=== PATIENT | male | born 1955 | race Hispanic/Latino ===

== ENCOUNTER 2018-03-22 04:19 | Emergency (ER) | payer BC ==
--- NOTE | 2018-03-22 08:14 | RAD ---
TWO VIEWS CHEST: DATE: 03/22/2018. PROVIDED CLINICAL HISTORY: Cough and sore throat. FINDINGS: Cardiac and mediastinal silhouette is within normal limits. Lungs appear clear. No pleural fluid or pneumothorax apparent. Degenerative changes are seen involving the thoracic spine. IMPRESSION: No evidence for an acute cardiopulmonary process. POS: [facility]
== END 2018-03-22 05:00 | disposition home or self-care (01) ==
LOC: ERS 04:19
DX: J20.8 Acute bronchitis due to other specified organisms (principal)
CPT/HCPCS: 71046

== ENCOUNTER 2019-06-26 11:44 | Inpatient (IN) | payer MEDICARE, OTHER ==
[2019-06-26] MEDS ORDERED: Aspirin Chewable 81 MG TAB ONE (12:04)
[2019-06-26] MEDS ORDERED: Nitroglycerin 2% Ointment 1 INCH/1 GM Packet ONE (12:09)
[2019-06-26 12:13] LABS: #Basophils 0.1 thou/uL (0.0-0.2); #Eosinphils 0.2 thou/uL (0.0-0.7); #Lymphocytes 5.6 thou/uL (1.20-3.40); #Monocytes 1.4 thou/uL (0.11-0.59); #Neutrophils 10.4 thou/uL (1.40-6.50); %Basophils 0.5 % (0.0-1.0); %Eosinophils 1.2 % (0.0-10.0); %Lymphocytes 31.6 % (21.0-51.0); %Monocytes 7.9 % (0.0-10.0); %Neutrophils 58.8 % (42.0-75.0); Mean Corpuscular HGB CONC 33.7 g/dL (32.0-36.0); Mean Corpuscular Hemoglobin 29.3 pg (27.0-31.0); Mean Corpuscular Volume 86.8 fL (78.0-98.0); Mean Platelet Volume 6.3 fL (7.4-10.4); Platelet Count 640 thou/uL (130-400); RBC Distribution Width 12.9 % (11.5-14.5); Red Blood Cell (RBC) Count 5.11 mill/uL (4.70-6.10); White Blood Cell (WBC) Count 17.6 thou/uL (4.8-10.8)
--- NOTE | 2019-06-26 12:19 | RAD ---
PORTABLE CHEST 1 VIEW: Date: 06/26/2019 Time: 1138 hours HISTORY: Chest pain. FINDINGS: Comparison made with exam of 03/22/2018. The heart size is normal. The aorta is tortuous. The lungs are well expanded without lobar consolidat ion, pneumothoraces, or pleural effusions. There are degenerative changes in the spine. IMPRESSION: No radiographic evidence of acute cardiopulmonary process. POS: [facility]
[2019-06-26] MEDS ORDERED: Morphine 4 MG/ML VIAL ONE (12:26)
[2019-06-26 12:34] LABS: CK (CPK) 97 U/L (30-200); Lipase 51 U/L (8-78)
[2019-06-26 12:51] LABS: Digoxin Less than 0.15 ng/mL (0.8-2.0)
[2019-06-26 14:07] LABS: ALT (SGPT) 34 U/L (8-55); AST (SGOT) 23 U/L (5-34); Albumin 4.5 g/dL (3.4-4.8); Alkaline Phosphatase 76 U/L (40-110); Anion Gap 17 mmol/L (10-20); BUN (Urea Nitrogen) 22 mg/dL (8.4-25.7); Bilirubin, Total 0.9 mg/dL (0.2-1.2); Calc. Creatinine Clearance 0 mL/min (70-130); Calcium 9.8 mg/dL (7.8-10.44); Carbon Dioxide 26 mmol/L (23-31); Chloride 98 mmol/L (98-107); Estimated GFR-MDRD 55; Globulin 3.6 g/dL (2.4-3.5); Glucose 130 mg/dL (80-115); Potassium 3.2 mmol/L (3.5-5.1); Protein, Total 8.1 g/dL (5.8-8.1); Sodium 138 mmol/L (136-145)
--- NOTE | 2019-06-26 14:27 | PDOC.FPRHP ---
- History of Present Illness Chief Complaint: CP chest History of Present Illness: Patient describes pressure in his chest which did not resolve after taking pain medication he had for his hip. He stated it felt like something was stuck in his throat. He then became "clammy and sweaty." Never had anything like this in the past. He states pain is improved since receiving nitro in the ED but it is still there some. Stays right in the center. Currently ranked at 2/10 "its just there, dull pain" , was 6/10 at worst. Rolling over it made worse. Denies history of GERD. ED Course: morphine ASA Nitro - Allergies/Adverse Reactions Allergies Allergy/AdvReac Type Severity Reaction Status Date / Time No Known Allergies Allergy Unverified 06/26/19 14:37 - Home Medications Medication Instructions Recorded Confirmed Type oxyCODONE HCl [Oxycodone HCl] 5 mg PO Q6HR 06/26/19 06/26/19 History - History PMHx: denies past medical history PSHx: L knee replacement Jun 07 in [place] FHx: denies family history of heart disease Social: denies smoking, alcohol, drugs currently. Former smoker, 1/2 ppd for 10 years. - Review of Systems General: denies: fever/chills, night sweats, fatigue Respiratory: denies: cough, shortness of breath Cardiovascular: reports: chest pain (see hpi). denies: palpitation, edema Gastrointestinal: denies: nausea, vomiting, diarrhea, abdominal pain Genitourinary: denies: dysuria Musculoskeletal: reports: arthritis/arthralgias (no change to post surgical knee pain). denies: tenderness, swelling Neurological: denies: seizure, weakness - Vital signs BP: 127/76 HR: 60 RR: 17 Tmax: 98.2 Pox: 97% on RA Wt: 91kg - Physical Exam Constitutional: NAD, awake, alert and oriented HEENT: EOMI, grossly normal vision, grossly normal hearing Neck: supple, trachea midline Chest: no-tender to palpation, no lesions Heart: RRR, normal S1/S2 Lungs: CTAB, no respiratory distress Abdomen: soft, non-tender, bowel sounds present Musculoskeletal: normal structure, normal tone Neurological: no focal deficit, normal sensation Skin: no rash/lesions, good turgor Heme/Lymphatic: no unusual bruising or bleeding, no purpura Psychiatric: normal mood and affect, good judgment and insight FMR H&P: Results - Labs Result Diagrams: 06/26/19 11:57 06/26/19 11:56 Lab results: WBC 17.6 thou/uL (4.8-10.8) H 06/26/19 11:57 Hgb 15.0 g/dL (14.0-18.0) 06/26/19 11:57 Hct 44.4 % (42.0-52.0) 06/26/19 11:57 MCV 86.8 fL (78.0-98.0) 06/26/19 11:57 Plt Count 640 thou/uL (130-400) H 06/26/19 11:57 Neutrophils % 58.8 % (42.0-75.0) 06/26/19 11:57 Sodium 138 mmol/L (136-145) 06/26/19 11:56 Potassium 3.2 mmol/L (3.5-5.1) L 06/26/19 11:56 Chloride 98 mmol/L (98-107) 06/26/19 11:56 Carbon Dioxide 26 mmol/L (23-31) 06/26/19 11:56 BUN 22 mg/dL (8.4-25.7) 06/26/19 11:56 Creatinine 1.30 mg/dL (0.7-1.3) 06/26/19 11:56 Glucose 130 mg/dL (80-115) H 06/26/19 11:56 Calcium 9.8 mg/dL (7.8-10.44) 06/26/19 11:56 Total Bilirubin 0.9 mg/dL (0.2-1.2) 06/26/19 11:56 AST 23 U/L (5-34) 06/26/19 11:56 ALT 34 U/L (8-55) 06/26/19 11:56 Alkaline Phosphatase 76 U/L (40-110) 06/26/19 11:56 Creatine Kinase 97 U/L (30-200) 06/26/19 11:56 Serum Total Protein 8.1 g/dL (5.8-8.1) 06/26/19 11:56 Albumin 4.5 g/dL (3.4-4.8) 06/26/19 11:56 Lipase 51 U/L (8-78) 06/26/19 11:56 FMR H&P: A/P - Problem List (1) Chest pain in adult Current Visit: Yes Status: Acute Code(s): R07.9 - CHEST PAIN, UNSPECIFIED - Plan Chest pain, likely 2/2 GI vs. MSK vs. ACS A- Overall workup negative so far. Trop/CXR/EKG all unremarkable. Considering pain started after meal I suspect possibility of GERD however considering age, sex, and smoking history he will merit an ACS r/o with stress test. With recent knee surgery we will also rule out PE. P- trend trops -CTA chest -npo at midnight -pharm nuclear stress test tomorrow -nitro prn -will give GI coctail and start on JUAN LUIS famotidine -tums prn R knee replacement - aware, will not tolerate exercise stress test dispo: admit tele obs IVF: SL PPx: famotidine, lovenox CODE: FULL
[2019-06-26 15:21] LABS: Troponin I 0.131 ng/mL (< 0.028)
[2019-06-26] MEDS ORDERED: Iopamidol 370 76% 100 ML VIAL ONE (15:32)
[2019-06-26] MEDS ORDERED: Ondansetron ODT 4 MG TAB PO PRN (17:21)
[2019-06-26] MEDS ORDERED: Potassium Chloride 20 MEQ TAB PO SCH (17:21)
[2019-06-26] MEDS ORDERED: Lidocaine 2% Viscous Solution 10 ML, Aluminum & Magnesium Hydroxide 30 ML SSW SCH (17:21)
[2019-06-26] MEDS ORDERED: Calcium Carbonate 500 MG ChewTAB PO PRN (17:21)
[2019-06-26] MEDS ORDERED: Ondansetron PF 4 MG/2 ML Vial IVP PRN (17:21)
[2019-06-26] MEDS ORDERED: Nitroglycerin 0.4 MG TAB (25 Tab Bottle) SL PRN (17:21)
--- NOTE | 2019-06-26 17:54 | CT ---
CT angiogram chest: 06/26/2019 COMPARISON: None HISTORY: Chest pain, fever, assess for pulmonary embolism TECHNIQUE: Axial CT imaging at 2.5 mm intervals through the chest with IV contrast using CT angiogram protocol with coronal and sagittal 3-D reformatted imaging. FINDINGS: Coronary arterial calcification noted. No pulmonary arterial filling defect seen to suggest the presence of acute pulmonary arterial embolism. No axillary, hilar, or mediastinal lymphadenopathy. Limited assessment of the upper abdomen appears grossly unremarkable. No pleural, pericardial, or mediastinal fluid. No pneumothorax noted on either side. Minimal linear density noted within the lingula suggesting volume loss or scar. No acute pulmonary pa renchymal abnormality is evident on either side. No endobronchial lesion is appreciated. Review of the osseous structures demonstrates no acute findin gs. IMPRESSION: No evidence of acute pulmonary arterial embolism.
[2019-06-26 18:39] LABS: Troponin I 1.015 ng/mL (< 0.028)
[2019-06-26] MEDS ORDERED: Enoxaparin Sodium 100 MG/ML SYRINGE SC SCH (19:15)
[2019-06-26 20:23] VITALS: BMI 31.9
[2019-06-26 21:33] LABS: Troponin I 4.016 ng/mL (< 0.028)
[2019-06-26] MEDS: Famotidine 20 MG TAB PO SCH (21:42)
[2019-06-26] MEDS: Acetaminophen 325 MG TAB PO PRN (23:57)
[2019-06-27] MEDS: Morphine 2 MG/ML SYRINGE SLOW IVP PRN ×3 (01:00→16:00)
[2019-06-27 05:15] LABS: #Basophils 0.1 thou/uL (0.0-0.2); #Eosinphils 0.2 thou/uL (0.0-0.7); #Lymphocytes 3.4 thou/uL (1.20-3.40); #Monocytes 1.2 thou/uL (0.11-0.59); #Neutrophils 11.8 thou/uL (1.40-6.50); %Basophils 0.6 % (0.0-1.0); %Lymphocytes 20.6 % (21.0-51.0); %Monocytes 7.2 % (0.0-10.0); %Neutrophils 70.7 % (42.0-75.0); Hemoglobin 13.8 g/dL (14.0-18.0); Mean Corpuscular HGB CONC 33.6 g/dL (32.0-36.0); Mean Corpuscular Hemoglobin 28.9 pg (27.0-31.0); Mean Platelet Volume 6.4 fL (7.4-10.4); Platelet Count 522 thou/uL (130-400); Red Blood Cell (RBC) Count 4.79 mill/uL (4.70-6.10); White Blood Cell (WBC) Count 16.7 thou/uL (4.8-10.8)
[2019-06-27 05:35] LABS: ALT (SGPT) 45 U/L (8-55); AST (SGOT) 138 U/L (5-34); Alkaline Phosphatase 69 U/L (40-110); Anion Gap 13 mmol/L (10-20); BUN (Urea Nitrogen) 22 mg/dL (8.4-25.7); Bilirubin, Total 0.9 mg/dL (0.2-1.2); Calc. Creatinine Clearance 107 mL/min (70-130); Calcium 9.2 mg/dL (7.8-10.44); Carbon Dioxide 25 mmol/L (23-31); Chloride 100 mmol/L (98-107); Estimated GFR-MDRD 86; Globulin 3.1 g/dL (2.4-3.5); Glucose 134 mg/dL (80-115); Potassium 4.1 mmol/L (3.5-5.1); Protein, Total 7.1 g/dL (5.8-8.1); Sodium 134 mmol/L (136-145)
--- NOTE | 2019-06-27 07:40 | PDOC.FM ---
- Subjective Subjective: Pt rested overnight, reports his pain improved greatly initially but this morning has worsened once again. He had 2 bouts (nilda 10 seconds) of AIVR overnight. Otherwise no complaints. - Objective Vital Signs & Weight: Vital Signs (12 hours) Temp Pulse Resp BP Pulse Ox 06/27/19 05:26 98.2 F 64 18 139/72 97 06/27/19 00:08 84 134/73 06/26/19 20:24 98.2 F 76 18 141/77 H 97 Weight Weight 92.5 kg Result Diagrams: 06/27/19 05:01 06/27/19 05:01 Phys Exam - Physical Examination Constitutional: NAD HEENT: moist MMs, sclera anicteric Neck: no JVD, supple Respiratory: no wheezing, clear to auscultation bilateral Cardiovascular: RRR, no significant murmur Gastrointestinal: non-tender, no distention Musculoskeletal: no edema, pulses present Neurological: normal sensation, moves all 4 limbs Psychiatric: normal affect, A&O x 3 Skin: no rash, normal turgor Dx/Plan (1) Chest pain in adult Code(s): R07.9 - CHEST PAIN, UNSPECIFIED Status: Acute - Plan Plan: NSTEMI A- Trops increased overnight, cards was consulted (recs appreciated), Th lovenox was administered, cards advises no need to continue trending trops as along as no EKG changes. Considering worsening of CP this AM I will order a stat EKG. CTA chest wnl P- stat EKG -continue Th Lovenox -f/u cards recs Elevated fasting BG -will get HA1C R knee replacement - aware, will not tolerate exercise stress test Hypokalemia -resolved CODE: FULL
[2019-06-27] MEDS: Famotidine 20 MG TAB PO SCH ×2 (08:00→21:36)
[2019-06-27] MEDS: Aspirin 81 mg Enteric Coated Tablet PO SCH (08:00)
[2019-06-27 08:30] LABS: Hemoglobin A1c 5.9 % (4.0-6.0)
[2019-06-27] MEDS ORDERED: Lidocaine 1% (PF) 30 ML VIAL ONE (08:37)
[2019-06-27] MEDS ORDERED: Enoxaparin Sodium 40 MG/0.4 ML SYRINGE SC SCH (09:00)
[2019-06-27] MEDS ORDERED: Enoxaparin Sodium 100 MG/ML SYRINGE SC SCH (09:00)
[2019-06-27] MEDS ORDERED: Heparin 10,000 UNITS/1 ML VIAL ONE (09:29)
[2019-06-27] MEDS ORDERED: Clopidogrel Bisulfate 300 MG TAB ONE (09:29)
[2019-06-27] MEDS ORDERED: Nitroglycerin 100MG/250ML BOT 250 ML ONE (09:29)
[2019-06-27] MEDS ORDERED: Verapamil 5 MG/2 ML VIAL ONE (09:29)
[2019-06-27] MEDS ORDERED: Adenosine 6 MG/2 ML VIAL ONE (09:29)
--- NOTE | 2019-06-27 09:46 | CON ---
DATE OF CONSULTATION: REASON FOR CONSULTATION: Elevated troponin and chest pain. HISTORY OF PRESENT ILLNESS: López is a very pleasant 64-year-old gentleman , who began having chest pain yesterday after taking medicine for hip pain from recent surgery. There was concern for a pill stuck in his throat. His initial troponins were negative. He did have pretty significant pain at that time at a 6/10. His pain significantly subsided once got into the emergency room. The patient did have a peak troponin of 4. I was called by resident last pm because of elevated troponin. No CP or EKG noted per resident. Instructed to give lovenox. Pt without previous h/o CAD and no RF for CAD. The patient did state he has had a mild discomfort since early this morning. His has pain worsened this am 3/10 and received morphine. Upon my arrival, he had minimal symptoms. His EKG initially showed no acute ST-T wave changes suggesting infarction or significant ischemia. PAST MEDICAL HISTORY: None. SURGICAL HISTORY: Knee replacement. SOCIAL HISTORY: No current tobacco or alcohol use. Previous tobacco use. REVIEW OF SYSTEMS: A 10-point review of systems is reviewed as above, otherwise negative. PHYSICAL EXAMINATION: GENERAL: Patient is a pleasant male, who is in no acute distress. The patient appears their stated age. VITAL SIGNS: Blood pressure 152/80, pulse 69, temperature 92. NEUROLOGIC: The patient is alert and oriented x3 with no focal neurologic deficits. HEENT: Sclerae without icterus. Mouth has moist mucous membranes with normal pallor. NECK: No JVD. Carotid upstroke brisk. No bruits bilaterally. LUNGS: Clear to auscultation with unlabored respirations. BACK: No scoliosis or kyphosis. CARDIAC: Regular rate and rhythm with normal S1 and S2. No S3 or S4 noted. No significant rubs, murmurs, thrills, or gallops noted throughout the precordium. PMI is not displaced. There is no parasternal heave. ABDOMEN: Soft, nontender, nondistended. No peritoneal signs present. No hepatosplenomegaly. No abnormal striae. EXTREMITIES: 2+ femoral and 2+ dorsalis pedis pulses. No cyanosis, clubbing, or edema. SKIN: No gross abnormalities. PERTINENT LABORATORY DATA: Hemoglobin 13.8. Creatinine 0.89. Peak troponin 4.016. IMPRESSION: Unstable angina. RECOMMENDATIONS: Given that Mr. Dawn is continuing to have chest discomfort, I would recommend urgent coronary angiography plus PCI. I discussed procedure in full detail with Mr. Dawn. Risks included not limited to the following: I discussed the procedure in full detail with the patient. The risks of the procedure were also discussed. The risks of the procedure include but are not limited to the following: , stroke, OH, need for emergency surgery, loss of limb, bleeding, and infection, as well as a reaction to the dye causing kidney failure and needing long-term dialysis. I also discussed the risks of PCI to include all of the above including coronary dissection and perforation in addition to acute stent thrombosis and restenosis. All questions about the procedure were answered. Given the above, the patient agreed to proceed with coronary angiography and possible PCI. All questions were answered. Given the above, the patient agreed to proceed above procedure, also discussed drug coated with nondrug coated stent placement. There were no contraindications. We will proceed if needed. Further recommendations pending the above. Job ID: [id number] [facility] SYSTEMKarishma
[2019-06-27] MEDS ORDERED: Sodium Chloride 0.9% 1,000 ML IV SCH (10:00)
[2019-06-27 11:38] LABS: Troponin I 86.921 ng/mL (< 0.028)
[2019-06-27] MEDS ORDERED: Nitroglycerin 50 MG/250 ML BOT 250 ML IVPB SCH (12:30)
[2019-06-27] MEDS ORDERED: ALPRAZolam 0.25 MG TAB PO PRN (15:19)
[2019-06-27] MEDS ORDERED: Iopamidol 370 76% 50 ML VIAL FS ONE (15:50)
[2019-06-27] MEDS ORDERED: Iopamidol 370 76% 100 ML VIAL ONE (15:50)
[2019-06-27 16:43] LABS: Critical Call Chem Troponin I RESULT DECREASING; Troponin I 67.327 ng/mL (< 0.028)
[2019-06-27] MEDS: Carvedilol 3.125 MG TAB PO SCH (17:17)
--- NOTE | 2019-06-27 18:36 | CON ---
DATE OF CONSULTATION: 06/27/2019 HISTORY OF PRESENT ILLNESS: Heron Dawn is a 64-year-old male, who presented with chest pain. He underwent cardiac catheterization this morning with coronary stenting. He has had complete relief of his chest discomfort after that. PAST MEDICAL HISTORY: Remarkable for knee replacement that was done on the left side earlier this year. FAMILY HISTORY: Negative for lung disease or heart disease. SOCIAL HISTORY: Not a smoker when he was young man, but mainly socially when he was drinking with friends. Does not smoke does not invade. Does not use drugs. He is , just moved to town. 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 PHYSICAL EXAMINATION: GENERAL: Very pleasant gentleman. VITAL SIGNS: He is afebrile. Heart rate 68, respiratory rate 16, oximetry is 94, and blood pressure 152/80. HEENT: Pupils are equal. Sclerae are anicteric. NECK: Supple. No lymphadenopathy. LUNGS: Clear. HEART: Regular rhythm. S1 and S2 are normal. ABDOMEN: Soft and nontender. EXTREMITIES: Without clubbing, cyanosis, or edema. LABORATORY DATA: White count 16.7, hemoglobin 13.8, platelets 522, and MCV was 86. Electrolytes are normal. Troponin peaked at 86. IMPRESSION AND PLAN: Myocardial infarction status post coronary stenting. He is a little bit anxious, so we have given him alprazolam to take while he is here. I will follow him while he is in the critical care unit. TIME SPENT: This is a 70-minute consult, 50% of the time spent on the unit coordinating care. Job ID: [id number] [facility]
[2019-06-27] MEDS: Atorvastatin Calcium 40 MG TAB PO SCH (21:37)
[2019-06-27] MEDS: Acetaminophen 325 MG TAB PO PRN (21:44)
[2019-06-28] MEDS: Acetaminophen 325 MG TAB PO PRN ×5 (01:42→21:57)
[2019-06-28 04:11] LABS: #Eosinphils 0.2 thou/uL (0.0-0.7); #Lymphocytes 3.9 thou/uL (1.20-3.40); #Monocytes 1.1 thou/uL (0.11-0.59); #Neutrophils 7.8 thou/uL (1.40-6.50); %Basophils 0.3 % (0.0-1.0); %Eosinophils 1.6 % (0.0-10.0); %Lymphocytes 30.1 % (21.0-51.0); %Monocytes 8.1 % (0.0-10.0); Hemoglobin 13.7 g/dL (14.0-18.0); Mean Corpuscular HGB CONC 33.7 g/dL (32.0-36.0); Mean Corpuscular Hemoglobin 29.3 pg (27.0-31.0); Mean Corpuscular Volume 86.9 fL (78.0-98.0); Mean Platelet Volume 6.4 fL (7.4-10.4); Platelet Count 470 thou/uL (130-400); RBC Distribution Width 13.2 % (11.5-14.5); Red Blood Cell (RBC) Count 4.68 mill/uL (4.70-6.10); White Blood Cell (WBC) Count 13.1 thou/uL (4.8-10.8)
[2019-06-28 04:38] LABS: ALT (SGPT) 40 U/L (8-55); AST (SGOT) 79 U/L (5-34); Albumin 3.7 g/dL (3.4-4.8); Alkaline Phosphatase 65 U/L (40-110); Anion Gap 11 mmol/L (10-20); BUN (Urea Nitrogen) 15 mg/dL (8.4-25.7); Bilirubin, Total 1.2 mg/dL (0.2-1.2); Calc. Creatinine Clearance 113 mL/min (70-130); Carbon Dioxide 25 mmol/L (23-31); Chloride 103 mmol/L (98-107); Estimated GFR-MDRD Greater than 90; Globulin 2.9 g/dL (2.4-3.5); Glucose 122 mg/dL (80-115); Potassium 4.1 mmol/L (3.5-5.1); Protein, Total 6.6 g/dL (5.8-8.1); Sodium 135 mmol/L (136-145)
--- NOTE | 2019-06-28 07:37 | PDOC.FM ---
- Subjective Subjective: Doing well, no CP since cath. No complaitns at this time. - Objective Vital Signs & Weight: Vital Signs (12 hours) Temp Pulse Resp BP Pulse Ox 06/28/19 02:03 97.9 F 82 18 135/72 96 06/27/19 20:00 99.2 F 100 Weight Admit Weight 92 kg Weight 92.215 kg Most Recent Monitor Data Heart Rate from ECG 81 NIBP 102/60 NIBP BP-Mean 77 Respiration from ECG 15 SpO2 97 I&O: 06/27/19 06/28/19 06/29/19 06:59 06:59 06:59 Intake Total 1837.3 Output Total 1700 Balance 137.3 Result Diagrams: 06/28/19 04:02 06/28/19 04:02 Phys Exam - Physical Examination Constitutional: NAD HEENT: moist MMs, sclera anicteric Neck: no JVD, supple Respiratory: no wheezing, clear to auscultation bilateral Cardiovascular: RRR, no significant murmur Gastrointestinal: soft, non-tender Musculoskeletal: no edema, pulses present Neurological: normal sensation, moves all 4 limbs Psychiatric: normal affect, A&O x 3 Skin: no rash, normal turgor Dx/Plan (1) Chest pain in adult Code(s): R07.9 - CHEST PAIN, UNSPECIFIED Status: Acute (2) NSTEMI (non-ST elevated myocardial infarction) Code(s): I21.4 - NON-ST ELEVATION (NSTEMI) MYOCARDIAL INFARCTION Status: Acute - Plan Plan: NSTEMI A- stable. Pt is s/p cath and LAD stent placement day 1. Doing well and asymptomatic. trops 86-->68 P- continue clopidogrel and ASA -coreg -atorvastatin -f/u cards recs -possible DC today Elevated fasting BG -A1C 5.9 R knee replacement -MD aware Hypokalemia -resolved CODE: FULL
[2019-06-28] MEDS: Famotidine 20 MG TAB PO SCH ×2 (09:01→20:28)
[2019-06-28] MEDS: Clopidogrel Bisulfate 75 MG TAB PO SCH (09:01)
[2019-06-28] MEDS: Carvedilol 3.125 MG TAB PO SCH ×2 (09:01→17:42)
[2019-06-28] MEDS: Aspirin Chewable 81 MG TAB PO SCH (09:02)
[2019-06-28] MEDS: Aspirin 81 mg Enteric Coated Tablet PO SCH (09:06)
--- NOTE | 2019-06-28 10:27 | PRG ---
DATE OF SERVICE: 06/28/2019 SUBJECTIVE: Mr. Dawn is doing very well, no current complaints. He is limited ambulation car due to recent knee surgery. No chest pain or pressure noted. OBJECTIVE: VITAL SIGNS: Blood pressure 112/68, pulse 96, temperature afebrile. LUNGS: Clear to auscultation. HEART: Regular rate and rhythm. ABDOMEN: Soft, nontender, nondistended. EXTREMITIES: No edema. IMPRESSION: 1. Non-Q-wave myocardial infarction. 2. Coronary artery disease. RECOMMENDATIONS: Continue aspirin, atorvastatin, in addition to carvedilol. Would increase carvedilol 6.25 to b.i.d. Continue Plavix. Add low-dose ROMAN inhibitor therapy. Check echo. Discussed potential use of LifeVest if LVEF is less than 35%. Would anticipate discharge in a.m. if stable. Job ID: [id number]
--- NOTE | 2019-06-28 11:08 | PRG ---
DATE OF SERVICE: 06/28/2019 Please see note from Dr. Fraris, for which I agree. The patient is seen and discussed and examined with residents by bedside. Basically, he did have a stent placed in his LAD and now states he feels better. It sounds like we are getting an echocardiogram and then is waiting to see what cardiology's recommendations are from there. It sounds like they want to keep him at least another day, and then will do outpatient cardiac rehab in addition to the already rehab is doing on his left knee after the knee replacement surgery. Job ID: [id number]
[2019-06-28] MEDS: Atorvastatin Calcium 40 MG TAB PO SCH (20:28)
[2019-06-29] MEDS: Acetaminophen 325 MG TAB PO PRN (01:44)
[2019-06-29] MEDS: traMADol HCl 50 MG TAB PO PRN ×3 (02:55→16:08)
[2019-06-29] MEDS ORDERED: Lisinopril 2.5 MG TAB PO SCH (09:00)
[2019-06-29] MEDS ORDERED: Losartan 25 MG TAB PO SCH (09:00)
[2019-06-29] MEDS: Famotidine 20 MG TAB PO SCH (09:15)
[2019-06-29] MEDS: Clopidogrel Bisulfate 75 MG TAB PO SCH (09:16)
[2019-06-29] MEDS: Carvedilol 3.125 MG TAB PO SCH ×2 (09:17→16:08)
[2019-06-29] MEDS: Aspirin Chewable 81 MG TAB PO SCH (09:17)
--- NOTE | 2019-06-29 11:14 | PDOC.FM ---
- Subjective Subjective: Pt doing well with no cardiac complaints, no new problems No fever/chills, no CP no sob - Objective Vital Signs & Weight: Vital Signs (12 hours) Temp Pulse Resp BP Pulse Ox 06/29/19 07:44 98.8 F 99 19 115/72 94 L 06/29/19 03:15 98.5 F 84 18 109/68 92 L Weight Admit Weight 92 kg Weight 93.395 kg Most Recent Monitor Data Heart Rate from ECG 81 NIBP 102/60 NIBP BP-Mean 77 Respiration from ECG 15 SpO2 97 I&O: 06/28/19 06/29/19 06/30/19 06:59 06:59 06:59 Intake Total 1837.3 300 Output Total 1700 Balance 137.3 300 Result Diagrams: 06/28/19 04:02 06/28/19 04:02 Phys Exam - Physical Examination Constitutional: NAD HEENT: moist MMs, sclera anicteric Neck: supple, full ROM Respiratory: no wheezing, clear to auscultation bilateral Cardiovascular: RRR, no significant murmur Gastrointestinal: soft, non-tender Musculoskeletal: no edema, pulses present Neurological: normal sensation, moves all 4 limbs Psychiatric: normal affect, A&O x 3 Skin: no rash, normal turgor Dx/Plan (1) Chest pain in adult Code(s): R07.9 - CHEST PAIN, UNSPECIFIED Status: Acute (2) NSTEMI (non-ST elevated myocardial infarction) Code(s): I21.4 - NON-ST ELEVATION (NSTEMI) MYOCARDIAL INFARCTION Status: Acute - Plan Plan: NSTEMI A- stable. Pt is s/p cath and LAD stent placement day 2. Doing well and asymptomatic. trops 86-->68 P- continue clopidogrel and ASA -coreg and lisinopril -atorvastatin -f/u cards recs -possible DC today HFrEF A- 2/2 NSTEMI. EF 30-35%. P- continue lisinopril, coreg -life vest -cardiac rehab Elevated fasting BG -A1C 5.9 R knee replacement -MD aware Hypokalemia -resolved CODE: FULL Addendum - Attending - Attending Attestation Date/Time: 06/29/19 0487 I personally evaluated the patient and discussed the management with Dr. Farris. I agree with the History, Examination, Assessment and Plan documented above with any addition or exceptions noted below.
--- NOTE | 2019-06-29 12:07 | PRG ---
DATE OF SERVICE: 06/29/2019 SUBJECTIVE: Mr. Dawn is doing well. No current complaints. He states he ambulated x2 and has been limited from his knee. No chest pain, pressure, shortness of breath, or other associated symptoms. OBJECTIVE: VITAL SIGNS: Blood pressure 115/72, pulse 99, and temperature afebrile. General: The patient is a pleasant male, in no acute distress, appears stated age. HEAD, EYES, EARS, NOSE AND THROAT: Sclerae without icterus. Mouth: Moist mucous membranes, normal palate. NECK: No jugular venous distention. Carotid upstroke is brisk. No bruits bilaterally. LUNGS: Clear to auscultation. HEART: Regular rate and rhythm, normal S1 and S2. ABDOMEN: Soft, nontender, nondistended. EXTREMITIES: No edema. PERTINENT LABORATORY DATA: Hemoglobin 13.7, hematocrit 40.6. IMPRESSION: 1. Non-Q-wave myocardial infarction. 2. Status post stent placement. RECOMMENDATIONS: 1. The patient is currently on beta-thony therapy and ROMAN inhibitor therapy. We will continue. 2. LVEF is diminished estimated at 30% to 35%. LifeVest has been requested. 3. Continue aspirin, Plavix, and statin therapy. Okay from my standpoint to discharge home with close outpatient followup. Job ID: [id number]
[2019-06-29 13:19] VITALS: TEMP 98
[2019-06-29 16:07] VITALS: BP 116/71
--- NOTE | 2019-06-30 14:54 | DIS ---
DATE OF ADMISSION: 06/26/2019 DATE OF DISCHARGE: 06/29/2019 ADMITTING ATTENDING: Pati Dubois MD. DISCHARGE ATTENDING: Pati Dubois MD. RESIDENT: Thomas Farris MD I personally saw the patient for a total of 4 days. CONSULTS: 1. Cardiology, Dr. Johnson. 2. Cardiac rehab. PROCEDURES: 1. On 06/26/2019, chest x-ray, impression, no acute process. 2. On 06/26/2019, chest thorax CT, impression, no evidence of acute pulmonary arterial embolism. 3. On 06/28/2019, echocardiogram, ejection fraction is visually estimated at 30% to 35%, akinetic motion of the anterior wall and septal wall noted on the left ventricle, mild mitral regurgitation, mild tricuspid regurgitation. 4. On 06/26/2019, cardiac catheterization with LAD stent placed. DISCHARGE MEDICATIONS: 1. Oxycodone 5 mg p.o. q.6 hours, resumed at home. 2. Aspirin 81 mg p.o. daily. 3. Atorvastatin 40 mg p.o. at bedtime. 4. Carvedilol 3.125 mg p.o. b.i.d. 5. Clopidogrel 75 mg p.o. daily. 6. Lisinopril 2.5 mg p.o. daily. DISCONTINUED MEDICATIONS: None. PRIMARY DIAGNOSIS: Sgy-OJ-azswneeeh myocardial infarction. SECONDARY DIAGNOSES: New diagnosis of heart failure with reduced ejection fraction, right knee replacement, hypokalemia. HISTORY OF PRESENT ILLNESS/HOSPITAL COURSE: This is a 64-year-old male, who presented to the hospital with chest pain. The patient was admitted for ACS rule out, had increasing tropes up to 86. Cardiology was consulted and advised therapeutic Lovenox dose to be given. The patient was brought back for catheterization and found to have complete occlusion of the LAD. The stent was successfully placed and the patient had resolution of symptoms. The patient was started on aspirin, clopidogrel, Coreg, lisinopril, and atorvastatin. Arrangements were made for LifeVest as an echocardiogram revealed reduced ejection fraction. Cardiac rehab was set up and LifeVest was set up, and the patient was discharged home in good condition. DISPOSITION: Stable. DISCHARGE INSTRUCTIONS: 1. Location: Home. 2. Activity: Cardiac precautions. 3. Diet: Heart healthy diet. 4. Followup: With Dr. Johnson on 07/07/2019, with primary care physician, Dr. Quique Villa on 07/08/2019 with cardiac rehab. Job ID: [id number]
--- NOTE | 2019-07-01 11:15 | PQF ---
ARACELIS MCKEONCARLY [id number] [facility]-266 [id number] CLINICAL DOCUMENTATION CLARIFICATION FORM: POST DISCHARGE Addendum to original discharge summary date: ____ Late entry note date: __ DATE: 07/01/2019 ATTN:CARLY OLMOS Please exercise your independent, professional judgment in responding to the clarification form. Clinical indicators are provided on the bottom of this form for your review Please check appropriate box(s): [ x ] Acute systolic heart failure [ ] Acute on chronic systolic heart failure [ ] Chronic systolic heart failure [ ] Other diagnosis [ ] Unable to determine In addition, please specify: Present on Admission (POA): [ x] Yes [ ] No [ ] Unable to determine For continuity of documentation, please document condition throughout progress notes and discharge summary. Thank You. CLINICAL INDICATORS - SIGNS / SYMPTOMS / LABS HFrEF 2/2 NSTEMI-Documented in family medicine progress note on 06/28 by Thomas Farris MD EF-30-35%-Documented in family medicine progress note on 06/28 by Thomas Farris MD Status post drug eluting stent placed-Documented in PN on 06/25 by Christian Johnson MD Unstable angina-Documented in consultation on 06/26 by Christian Johnson MD RISKS: HFrEF 2/2 NSTEMI-Documented in family medicine progress note on 06/28 by Thomas Farris MD EF-30-35%-Documented in family medicine progress note on 06/28 by Thomas Farris MD TREATMENTS: Continue clopidogrel and ASA-Documented in family medicine progress note on by Thomas Farris MD Coreg and lisinopril-Documented in family medicine progress note on 06/28 by Thomas Farris MD Atorvastatin-Documented in family medicine progress note on 06/28 by Thomas Farris MD F/U cards recs-Documented in family medicine progress note on 06/28 by Thomas Farris MD The patient is currently on beta-thony therapy and ROMAN inhibitor therapy - Documented in PN on 06/25 by Christian Johnson MD [employer] (This form is maintained as a part of the permanent medical record) 2014 [employer]. All Rights Reserved [email or web address]
== END 2019-06-29 18:55 | disposition home or self-care (01) | DRG 246 ==
LOC: ERS 11:44 → ERHOLD 14:47 → OBSVTOIN 14:47 → 2SW 19:06 → 2NO 19:56 → CCU 06-27 10:02 → 2NO 06-28 02:05
PROVIDERS: ADMIT Family Medicine; ATTEND Family Medicine
PROC: 4A023N7 Measurement of Cardiac Sampling and Pressure, Left Heart, Percutaneous Approach (ICD-10-PCS; principal; 2019-06-26)
PROC: 027034Z Dilation of Coronary Artery, One Artery with Drug-eluting Intraluminal Device, Percutaneous Approach (ICD-10-PCS; 2019-06-26)
PROC: B2111ZZ Fluoroscopy of Multiple Coronary Arteries using Low Osmolar Contrast (ICD-10-PCS; 2019-06-26)
PROC: 02C03ZZ Extirpation of Matter from Coronary Artery, One Artery, Percutaneous Approach (ICD-10-PCS; 2019-06-26)
DX: I21.4 Non-ST elevation (NSTEMI) myocardial infarction (principal); I50.23 Acute on chronic systolic (congestive) heart failure; E87.6 Hypokalemia; Z96.652 Presence of left artificial knee joint; I25.110 Atherosclerotic heart disease of native coronary artery with unstable angina pectoris
CPT/HCPCS: 36415; 36416; 71045; 71275; 76942; 80053; 80162; 82550; 83036; 83690; 84484; 85025; 85347; 92928; 92973; 93005; 93010; 93306; 93458; 93798; 94760; 96374; C1725; C1757; C1769; C1874; C1887; C9600; J0153; J1644; J1650; J2001; J2270; Q9967

== ENCOUNTER 2020-01-05 15:20 | Outpatient (CLI) | payer MEDICARE, OTHER ==
--- NOTE | 2020-01-06 08:49 | MRI ---
MRI LEFT HAND WITHOUT CONTRAST: HISTORY: Strain of extensor pollicis longus. COMPARISON: Hand radiograph 12/25/2019. FINDINGS: Tendons: The extensor pollicis longus distal portion is seen beginning at the thumb metacarpal base is felt to have a normal insertion upon the phalanx of the thumb. It is torn at the level of the metacarpal ba se and retracted into the forearm out of field of view as the axial image does not extend this far pr oximally. There is edema within the empty tendon sheath. Some mild tenosynovitis within the 2nd extensor compartment. Mild tenosynovial fluid in the 3rd exte nsor compartment. The extensor carpi ulnaris appears to be intact. Bones: There is moderate degenerative disease of the scaphotrapezium, trapezoidal, as well as of the thumb c arpal metacarpal joint. No acute displaced fracture. IMPRESSION: Ruptured extensor pollicis longus tendon at the thumb metacarpal base with the distal tendon having n ormal insertion, although there is a gap from the thumb metacarpal base to the forearm out of field o f view as the axial image does not extend to the far enough proximally to image the torn stump. The gap measures at least 7.5 cm. POS: HOME
== END 2020-01-05 15:21 | disposition home or self-care (01) ==
LOC: BICMRI 15:20
PROVIDERS: ATTEND Orthopaedic Surgery
DX: S56.312A Strain of extensor or abductor muscles, fascia and tendons of left thumb at forearm level, initial encounter (principal)

== ENCOUNTER 2020-01-07 13:36 | Outpatient (CLI) | payer MEDICARE, OTHER ==
[2020-01-07 18:01] LABS: #Basophils 0.1 thou/uL (0.0-0.2); #Eosinphils 0.3 thou/uL (0.0-0.7); #Lymphocytes 2.5 thou/uL (1.20-3.40); #Monocytes 0.5 thou/uL (0.11-0.59); #Neutrophils 5.3 thou/uL (1.40-6.50); %Basophils 1.1 % (0.0-1.0); %Eosinophils 3.2 % (0.0-10.0); %Lymphocytes 28.8 % (21.0-51.0); %Monocytes 5.4 % (0.0-10.0); %Neutrophils 61.6 % (42.0-75.0); Hemoglobin 15.5 g/dL (14.0-18.0); Mean Corpuscular HGB CONC 33.8 g/dL (32.0-36.0); Mean Corpuscular Volume 91.7 fL (78.0-98.0); Mean Platelet Volume 7.5 fL (7.4-10.4); Platelet Count 202 thou/uL (130-400); RBC Distribution Width 12.9 % (11.5-14.5); Red Blood Cell (RBC) Count 5.01 mill/uL (4.70-6.10); White Blood Cell (WBC) Count 8.7 thou/uL (4.8-10.8)
[2020-01-07 18:05] LABS: Bacteria/HPF None Seen HPF (None Seen); Bilirubin Negative (Negative); Blood, Urine Negative (Negative); Clarity Clear (Clear); Glucose, Urine (Dipstick) Normal (Negative); Ketone, Urine Negative (Negative); Leukocyte Negative Leu/uL (Negative); Nitrite Negative (Negative); Protein, Urine (Dipstick) Negative (Neg-Trace); RBC/HPF 0-3 HPF (0-3); Specific Gravity, Urine 1.022 (1.002-1.036); Squamous Epithelial None Seen HPF (0-3); Urobilinogen Normal mg/dL (Less than 2); WBC/HPF 0-3 HPF (0-3)
[2020-01-08 12:04] LABS: SARS-CoV-2 MS2 Positive; SARS-CoV-2 N Gene Negative; SARS-CoV-2 S Gene Negative; SARS-CoV-2 by NAA Not Detected (NotDetected); SARS-CoV-2 orf1ab Negative
--- NOTE | 2020-01-10 13:06 | EKG ---
Test Reason : Blood Pressure : / mmHG Vent. Rate : 068 BPM Atrial Rate : 068 BPM P-R Int : 156 ms QRS Dur : 098 ms QT Int : 408 ms P-R-T Axes : 074 -13 061 degrees QTc Int : 433 ms Normal sinus rhythm Low voltage QRS Inferior infarct , age undetermined Possible Anterolateral infarct , age undetermined Abnormal ECG No previous ECGs available Confirmed by MASON ALFRED MD ([id number]) on 01/10/2020 1:06:12 PM Referred By: OBDULIO Confirmed By:MASON ALFRED MD
== END 2020-01-07 13:37 | disposition home or self-care (01) ==
LOC: LABBT 13:36
PROVIDERS: ATTEND Orthopaedic Surgery Hand Surgery
DX: Z01.818 Encounter for other preprocedural examination (principal); Z20.828 Contact with and (suspected) exposure to other viral communicable diseases; S66.212A Strain of extensor muscle, fascia and tendon of left thumb at wrist and hand level, initial encounter
CPT/HCPCS: 81001; 85025; U0003; 87635; 93005; 93010

== ENCOUNTER 2020-01-11 13:24 | Day surgery (SDC) | payer MEDICARE, OTHER ==
[2020-01-08 12:02] VITALS: BMI 28.8
[~2020-01-11 13:24] MED LIST: EPHEDRINE 25 MG/5 ML SYRINGE ONE; Lidocaine 1% PF 5 ML VIAL ONE; Ondansetron PF 4 MG/2 ML Vial ONE; PHENYLEPHRINE-NS 100 MCG/ML 10 ML SYRINGE ONE; PROPOFOL 200 MG/20 ML VIAL ONE; Ropivacaine 0.2% HCl/PF (40 MG/20 ML VIAL) ONE; Ropivacaine 0.5% HCl/PF (150 MG/30 ML VIAL) ONE
[2020-01-11] MEDS ORDERED: Fentanyl 100 MCG/2 ML VIAL ONE ×2 (15:10→15:17)
[2020-01-11] MEDS ORDERED: Midazolam HCl 2 mg/2 ml Vial ONE (15:11)
[2020-01-11] MEDS ORDERED: Lidocaine 1% PF 5 ML VIAL ONE (15:11)
[2020-01-11] MEDS ORDERED: Bacitracin Zinc Ointment 30 gm TUBE ONE (15:16)
[2020-01-11] MEDS ORDERED: Betamet Acet/Betamet Na Ph 30 MG/5 ML VIAL ONE (15:16)
[2020-01-11] MEDS ORDERED: Bupivacaine PF 0.5% 30 ML VIAL ONE (15:16)
[2020-01-11] MEDS ORDERED: Propofol 500 MG/50 ML VIAL ONE (16:03)
[2020-01-11] MEDS ORDERED: Ketorolac Tromethamine 30 MG/ML VIAL ONE (18:45)
--- NOTE | 2020-01-12 08:18 | OP ---
DATE OF PROCEDURE: 01/11/2020 PREOPERATIVE DIAGNOSIS: Extensor pollicis longus rupture with greater than 10 cm proximal retraction of the proximal stump. FINDINGS: EPL rupture approximately 2 cm distal to the end of the retinaculum and retraction of the tendon approximately 6 cm with the proximal ends most distal 15 mm being pseudotendon. PROCEDURE PERFORMED: 1. Tenotomy, extensor pollicis longus tendon stumps to realize they will not fit. 2. Extensor indicis proprius harvest for extensor indicis proprius to EPL extensor pollicis longus transfer. 3. Application of splint. ESTIMATED BLOOD LOSS: 10 mL. TOURNIQUET TIME: 60 minutes. DESCRIPTION OF PROCEDURE: After successful block with only minimal sedation, the patient had the limb prepped and draped. We tested him throughout the areas of possible incision. The limb had been shaved. A time-out was done appropriately. With the limb exsanguinated, tourniquet inflated to 250 mmHg pressure, we then outlined three zigzag incisions, one just at Sera tubercle and proximally about 2.5 cm to identify the tendon, the second we could feel the distal end stump approximately 3 cm distal to the retinaculum, and a fourth over the extensor indicis proprius slightly ulnar to the extensor digitorum communis at the MP joint of the index finger. We entered the Sera tubercle incision, we did not initially find the tendon, but it was found with a long pseudotendon approximately 5 cm proximal to the Sera tubercle. We then resected the pseudotendon, captured it with a Williams suture on 3-0 Prolene, but could not pull it even within 3 cm of the distal stump. For this reason, we finished our tenotomy, and then turned our attention to the distal stump. We identified the distal stump, performed a tenotomy to get rid of the bulbous end, shortly by 1 cm We made our zigzag incision centered over the MP joint index finger, harvested the ulnar base ulnar line. The ulna position extensor indicis proprius tendon out to a level of 1 cm along the retinaculum. We closed the retinacular defect with 4-0 Prolene interrupted [id number] and then harvested tendon back to a point proximal to the retinaculum at the wrist. Then, we placed it on top of the retinaculum after it was closed with 2-0 running Vicryl. We then followed the tunnel of the twenty-nine palms APL, lifted up all superficial nerve branches, and with a Carrel curved tendon passer, the transferred extensor indicis proprius into the same incision as the recipient extensor pollicis longus. We then created a 3-weave Pulvertaft weave, secured with multiple 4-0 Prolene with RB-1 needle with the thumb extended, and we had excellent tension so that when we finished the interphalangeal joint, it was extended 20 degrees. We then removed the retractors, released the tourniquet, and had excellent hemostasis. We closed the wounds with a combination of interrupted 4-0 Monocryl deep subcutaneous suture and 4-0 nylon interrupted mattress for the epidermis. Bulky dressing was applied with a splint that held the thumb in abduction and elevation and blocked the index finger MPJ from flexion. When case finished, the digits were pink with excellent refill. Job ID: [id number]
== END 2020-01-11 19:35 | disposition home or self-care (01) ==
LOC: SDC 13:24
PROVIDERS: ATTEND Orthopaedic Surgery Hand Surgery
PROC: 0LQ80ZZ Repair Left Hand Tendon, Open Approach (ICD-10-PCS; principal; 2020-01-11)
PROC: 0LU807Z Supplement Left Hand Tendon with Autologous Tissue Substitute, Open Approach (ICD-10-PCS; 2020-01-11)
PROC: 3E0T3BZ Introduction of Anesthetic Agent into Peripheral Nerves and Plexi, Percutaneous Approach (ICD-10-PCS; 2020-01-11)
DX: S66.812A Strain of other specified muscles, fascia and tendons at wrist and hand level, left hand, initial encounter (principal); I10 Essential (primary) hypertension; I25.2 Old myocardial infarction; Z79.82 Long term (current) use of aspirin; Z79.899 Other long term (current) drug therapy; Z87.891 Personal history of nicotine dependence; G89.18 Other acute postprocedural pain
CPT/HCPCS: J0690; J0702; J1885; J2250; J2405; J2704; J2795; J3010; J3490; S0020

== ENCOUNTER 2020-05-17 09:45 | Outpatient (CLI) | payer MEDICARE, OTHER ==
--- NOTE | 2020-05-17 12:27 | MRI ---
MRI RIGHT WRIST PERFORMED WITHOUT CONTRAST ENHANCEMENT: Date: 05/17/2020 HISTORY: Right lateral thumb pain. Concern for extensor tendon injury. FINDINGS: Carpal tunnel region appears unremarkable. The extensor tendons of the fingers appear normal. Imaging at the level of the thumb show some arthritic changes at the triscaphe and first carpometacar pal joint level. The extensor pollicis brevis and longus tendons appear intact. No fluid seen within the tendon sheaths. This was done as a large field of view study, but scapholunate, lunotriquetral ligaments, and triangu lar fibrocartilage all appear intact. IMPRESSION: Arthritic changes of the wrist. No evidence of extensor tendon injury of the thumb. POS: [facility]
== END 2020-05-17 09:46 | disposition home or self-care (01) ==
LOC: BICMRI 09:45
PROVIDERS: ATTEND Orthopaedic Surgery Hand Surgery
DX: S66.811A Strain of other specified muscles, fascia and tendons at wrist and hand level, right hand, initial encounter (principal); M19.031 Primary osteoarthritis, right wrist

== ENCOUNTER 2020-06-09 14:08 | Outpatient (CLI) | payer MEDICARE, OTHER ==
[2020-06-09 15:52] LABS: #Basophils 0.1 10x3/uL (0.0-0.2); #Eosinphils 0.4 10x3/uL (0.0-0.5); #Monocytes 0.7 10x3/uL (0.0-1.1); #Neutrophils 5.2 10x3/uL (1.5-8.4); %Basophils 0.6 % (0.0-2.0); %Eosinophils 4.1 % (0.0-6.0); %Lymphocytes 33.8 % (18.0-47.0); %Monocytes 7.1 % (0.0-10.0); Hemoglobin 15.6 g/dL (13.5-17.5); Mean Corpuscular HGB CONC 34.5 g/dL (32.0-36.0); Mean Corpuscular Hemoglobin 29.9 pg (27.0-33.0); Mean Corpuscular Volume 86.6 fl (81.2-95.1); Mean Platelet Volume 9.6 fl (7.4-10.4); Platelet Count 207 10x3/uL (150-450); Red Blood Cell (RBC) Count 5.22 10x6/uL (4.32-5.72); White Blood Cell (WBC) Count 9.7 10x3/uL (3.5-10.5)
--- NOTE | 2020-06-09 21:06 | EKG ---
Test Reason : Blood Pressure : / mmHG Vent. Rate : 072 BPM Atrial Rate : 072 BPM P-R Int : 156 ms QRS Dur : 100 ms QT Int : 394 ms P-R-T Axes : 060 -11 044 degrees QTc Int : 431 ms Normal sinus rhythm Low voltage QRS Inferior infarct (cited on or before 07-JAN-2020) Anterolateral infarct (cited on or before 07-JAN-2020) Abnormal ECG When compared with ECG of 07-JAN-2020 16:01, No significant change was found Confirmed by Beena TEAGUE ([id number]) on 06/09/2020 9:06:11 PM Referred By: OBDULIO Confirmed By:Beena TEAGUE
[2020-06-10 01:57] LABS: SARS-CoV-2 PCR by NAA Not Detected (NotDetected)
== END 2020-06-09 14:09 | disposition home or self-care (01) ==
LOC: LABBT 14:08
PROVIDERS: ATTEND Urology
DX: Z01.818 Encounter for other preprocedural examination (principal); S66.211A Strain of extensor muscle, fascia and tendon of right thumb at wrist and hand level, initial encounter; Z20.822 Contact with and (suspected) exposure to COVID-19
CPT/HCPCS: 85025; 93005; U0003; U0005; 87635; 93010

== ENCOUNTER 2020-06-14 08:18 | Day surgery (SDC) | payer MEDICARE, OTHER ==
[2020-06-13 12:13] VITALS: BMI 30.5
[2020-06-14] MEDS ORDERED: Bupivacaine HCl 0.5%/Epinephrine 1:200,000/PF 30 ml Vial ONE (09:52)
[2020-06-14] MEDS ORDERED: Lidocaine 1% PF 5 ML VIAL ONE (09:52)
[2020-06-14] MEDS ORDERED: PROPOFOL 200 MG/20 ML VIAL ONE (09:52)
[2020-06-14] MEDS ORDERED: Calcium Chloride 1 GM/10 ML Abboject SYRINGE ONE (09:52)
[2020-06-14] MEDS ORDERED: PHENYLEPHRINE-NS 100 MCG/ML 10 ML SYRINGE ONE (09:52)
[2020-06-14] MEDS ORDERED: ePHEDrine 50 MG/ML VIAL ONE (09:52)
[2020-06-14] MEDS ORDERED: Fentanyl 100 MCG/2 ML VIAL ONE ×2 (10:08→10:12)
[2020-06-14] MEDS ORDERED: Sodium Chloride 0.9% 10 ML ONE (10:09)
[2020-06-14] MEDS ORDERED: Betamet Acet/Betamet Na Ph 30 MG/5 ML VIAL ONE (10:09)
[2020-06-14] MEDS ORDERED: Bupivacaine PF 0.5% 30 ML VIAL ONE (10:09)
[2020-06-14] MEDS ORDERED: Bacitracin Zinc Ointment 30 gm TUBE ONE (10:09)
[2020-06-14] MEDS ORDERED: Midazolam HCl 2 mg/2 ml Vial ONE (10:12)
[2020-06-14] MEDS ORDERED: Phenylephrine 10 MG/ML VIAL ONE (11:19)
[2020-06-14] MEDS ORDERED: Ketorolac Tromethamine 30 MG/ML VIAL ONE (14:08)
[2020-06-14] MEDS ORDERED: HYDROcodone/Acetaminophen 5/325 mg Tablet ONE (16:18)
--- NOTE | 2020-06-15 07:34 | OP ---
DATE OF PROCEDURE: 06/14/2020 PREOPERATIVE DIAGNOSIS: Right thumb extensor pollicis longus rupture. POSTOPERATIVE DIAGNOSES: Right thumb extensor pollicis longus rupture with level of rupture probably at just distal to Sera's tubercle with findings of a pseudotendon from 1 cm distal Sera's tubercle to just dorsal to the snuffbox leading edge in distal edge. PROCEDURES PERFORMED: 1. Extensor pollicis longus pseudotendon debridement/tenotomy of the extensor pollicis longus to free it up from the adhesions created from the pseudotendon. 2. Right extensor pollicis longus tenolysis. 3. Right extensor tendon appropriate harvest with transfer to extensor pollicis longus. INDICATIONS FOR PROCEDURE: The patient with almost a year of lack of able to use/extend his distal thumb and to lift his thumb independently off a flat surface. Already MRI showing there was EPL tendon at the level of the thumb MP joint, but the patient had a clinical evaluation showing there was no function. TOURNIQUET TIME: 81 minutes. BLOOD LOSS: 50 mL. FINDINGS: Again, pseudotendon of extensor pollicis longus tendon from the retinaculum still distal edge all way to the level of the distal third of the snuffbox. COMPLICATIONS: None. DESCRIPTION OF PROCEDURE: After successful general endotracheal anesthesia, the limb was prepped and draped. The patient also had a block given beforehand, supraclavicular, which definitely was affected by the time with the surgery. We then outlined incision on the ulnar aspect of his index finger metacarpal for harvesting the EIP and an incision proximal to the retinaculum for harvesting the EIP as well as extending this distal to the retinaculum defied the EPL. We then initialed radial incision over the Sera's tubercle and extended it 1 cm distal and we found no extensor pollicis longus underneath the retinaculum and slightly distal to this. So, we made an incision beginning the midportion snuffbox to almost the level of the confluence of the EPL and EPB. Once we made this incision, we found the pseudotendon that was attached and then found the primary tendon. We had performed a tenolysis, especially spared the superficial radial nerve branches to free the nooksack EPL and retracted back into the wound, given us enough flap for transfer. We then turned our attention to the third and did most distal excision over the extensor extensor digitorum communis to the index finger at the MP joint. We carried incision through skin and subcutaneous tissue, spared superficial nerve branch and we identified the extensor indicis proprius ulnar to the extensor digitorum communis to the index finger, harvested this to a 0.1 cm distal to the MP joint dorsally. We then closed the retinaculum medially through its entire distal one-half of the incision. There was no subluxation or translation. No abnormality of the extensor digitorum communis, index finger, remnant. We then pulled on the tendon after freeing it as far as, we could see within the wound proximal and noticed where the EIP muscle belly was being pulled into the retinaculum by retraction, so we pulled it back here, closed the retinaculum where we searched for the extensor pollicis longus, and placed the EIP tendon graft longus muscle belly in-line with what was a formal EPL and passed it underneath/deep to all superficial radial nerve branches. Again, we had performed a tenolysis to remove adhesions at this point. Then, with the help from the system, we made a three weave Pulvertaft type weave with 4-0 Prolene used to secure the weave in maximum digit, radial abduction and elevation. Once this was done x3 and sutured at the each junction, we had appropriate tension with the thumb elevated off a flat table with other digits flat and the extensor pollicis longus demonstrate an excellent dorsiflexion of the thumb tip. We finished the weave, made a small 5 mm fish mouth type cut and closed this distal and proximal to the weave and then, we released the tourniquet. We obtained hemostasis. We put 2 mL Celestone in the harvest site of the MP joint of the index finger and closed the retinacular defect created by the harvest with a 4-0 Prolene with RB-1 needle. We then closed the primary defect over the retinaculum with 4-0 Prolene and then we were able to ensure muscle belly included. Then, we closed the remaining incision with hemostasis, with a running 4-0 Monocryl undyed and 4-0 nylon undyed. The patient left the operating room without evidence of anesthetic or operative complication. Job ID: [id number]
== END 2020-06-14 16:36 | disposition home or self-care (01) ==
LOC: CCL 08:18
PROVIDERS: ATTEND Orthopaedic Surgery Hand Surgery
PROC: 0L870ZZ Division of Right Hand Tendon, Open Approach (ICD-10-PCS; principal; 2020-06-14)
PROC: 0LN70ZZ Release Right Hand Tendon, Open Approach (ICD-10-PCS; 2020-06-14)
PROC: 0LU507Z Supplement Right Lower Arm and Wrist Tendon with Autologous Tissue Substitute, Open Approach (ICD-10-PCS; 2020-06-14)
DX: S66.211A Strain of extensor muscle, fascia and tendon of right thumb at wrist and hand level, initial encounter (principal); I25.2 Old myocardial infarction; Z79.82 Long term (current) use of aspirin; Z79.899 Other long term (current) drug therapy; Z87.891 Personal history of nicotine dependence; Z95.5 Presence of coronary angioplasty implant and graft; Z96.652 Presence of left artificial knee joint
CPT/HCPCS: J0690; J0702; J1885; J2250; J2370; J2704; J3010; J3490; S0020

== ENCOUNTER 2024-12-31 13:28 | Outpatient (CLI) | payer MEDICARE, OTHER | END 2024-12-31 13:29 | disposition home or self-care (01) | LOC: MRI 13:28 | PROVIDERS: ATTEND Family Medicine Sports Medicine | DX: M47.26 Other spondylosis with radiculopathy, lumbar region (principal); M51.16 Intervertebral disc disorders with radiculopathy, lumbar region; M48.061 Spinal stenosis, lumbar region without neurogenic claudication | CPT/HCPCS: 72148 ==

== ENCOUNTER 2025-03-13 15:36 | Emergency (ER) | payer MEDICARE, OTHER | END 2025-03-13 17:41 | disposition home or self-care (01) | LOC: ERS 15:36 | DX: M19.041 Primary osteoarthritis, right hand (principal); I25.2 Old myocardial infarction; Z95.5 Presence of coronary angioplasty implant and graft; Z75.3 Unavailability and inaccessibility of health-care facilities | CPT/HCPCS: 99283 ==